=== PATIENT | male | born 1990 | race Caucasian/White ===

== ENCOUNTER 2017-08-22 01:02 | Emergency (ER) | payer BC, OTHER ==
[~2017-08-22] VITALS: Ht 170.2 cm; Wt 58.0 kg
[~2017-08-22 01:02] MED LIST: IBUP-814 PO; NO HOME MEDS; SILV50CR31 TP
[2017-08-22 05:42] VITALS: BP 118/80
[2017-08-22] MEDS ORDERED: ondansetron 4mg rapidly disintigrating tab PO ONE (06:15)
[2017-08-22] MEDS ORDERED: ONDA4TAB12 PO (06:18)
[2017-08-22] MEDS ORDERED: OMEP40CA37 PO (06:18)
== END 2017-08-22 07:00 | disposition home or self-care (01) ==
LOC: ER 01:02
DX: R10.13 Epigastric pain (principal); Z79.899 Other long term (current) drug therapy
CPT/HCPCS: 99283